=== PATIENT | male | born 1990 | race Asian ===

== ENCOUNTER → 2023-05-15 | Day surgery (SDC) | payer BC ==
[~2023-05-15] MED LIST: DEXAMETHASONE SOD PHOS INJ 4 MG/ML SDV ONE; DILTIAZEM 24HR120 M1 PO; FENTANYL CITRATE/PF 100MCG/2 ML INJ ONE; FEROSUL325 MG PO; KETOROLAC TROMETHAMINE 30 MG/ML VIAL ONE; LIDOCAINE HCL 2% LOCAL INJ 5 ML SDV VIAL INJ ONE; MULTIVITAMIN; NASOCORT; OFLOXACIN 0.3% (OTIC SOL) 5 ML BTL ONE; ONDANSETRON HCL INJ 2MG/ML 2ML 2 MG/ML VIAL ONE; PHENYLEPHRINE HCL 1% 10 MG/ML VIAL ONE; PROPOFOL IV EMULSION 10 MG/ML 20 ML VIAL ONE; SEVOFLURANE INHAL SOLN 250 ML PEN BTL ONE; SUBOXONE 8 MG-1 EAC2 PO; VITAMIN D31 ML
[2023-05-15] MEDS: LACTATED RINGER'S 1,000 ML ONE (08:09)
[2023-05-15 11:10] VITALS: BP 100/58; PULSE 60; RESP 16; O2SAT 98
== END | disposition home or self-care (01) ==
LOC: OR 06:27
PROVIDERS: ATTEND Otolaryngology Otolaryngology/Facial Plastic Surgery
DX: H65.23 Chronic serous otitis media, bilateral (principal); H90.3 Sensorineural hearing loss, bilateral; I10 Essential (primary) hypertension; F17.290 Nicotine dependence, other tobacco product, uncomplicated; Z88.1 Allergy status to other antibiotic agents; Z79.899 Other long term (current) drug therapy
CPT/HCPCS: 69436; J3010; J7121; J1100; J1885; J2001; J2371; J2405